=== PATIENT | female | born 1990 | race Caucasian/White ===

== ENCOUNTER 2018-12-02 17:03 | Emergency (ER) | payer BC, MEDICAID ==
[2018-12-02] MEDS ORDERED: Sodium Chloride 0.9% 10 ML Syringe FLUSH PRN (17:10)
[2018-12-02] MEDS ORDERED: Sodium Chloride 0.9% 2.5 ML Syringe FLUSH PRN (17:10)
--- NOTE | 2018-12-02 17:18 | EDM.PDOC ---
ED HPI GENERAL MEDICAL PROBLEM - General Chief Complaint: Neuro Symptoms/Deficits Stated Complaint: HIGH BP Time Seen by Provider: 12/02/18 17:05 Source of Information: Reports: Patient History Limitations: Reports: No Limitations - History of Present Illness INITIAL COMMENTS - FREE TEXT/NARRATIVE: HISTORY AND PHYSICAL: History of present illness: Patient reports that she had elevated blood pressure 2 weeks prior to delivering her baby. Patient reports that she had a vaginal delivery on 11/22/18. She continues to have elevated blood pressure and is now currently on 3 antihypertensive medications: Lisinopril, nifedipine, and labetalol. She recently was admitted for hypertension management at [facility]. She states that she does have some muscle twitching in bilateral cheeks on her face and has some generalized weakness to bilateral hands. She has not had any unilateral deficits or weakness. She denies any syncope, near syncope or head injury. She has had some blurred vision. She denies any fever, chills, chest pain, shortness of breath or cough. Denies any abdominal pain, nausea, vomiting, diarrhea, constipation or dysuria. She has been able to eat and drink appropriately. Review of systems: As per history of present illness and below otherwise all systems reviewed and negative. Past medical history: As per history of present illness and as reviewed below otherwise noncontributory. Surgical history: As per history of present illness and as reviewed below otherwise noncontributory. Social history: See social history for further information Family history: As per history of present illness and as reviewed below otherwise noncontributory. Physical exam: General: Well-developed and well-nourished 28-year-old female. Alert and oriented. Nontoxic appearing and in no acute distress. HEENT: Atraumatic, normocephalic, pupils equal and reactive bilaterally, negative for conjunctival pallor or scleral icterus, mucous membranes moist, TMs normal bilaterally, throat clear, neck supple, nontender, trachea midline. No drooling or trismus noted. No meningeal signs. No hot potato voice noted. Lungs: Clear to auscultation, breath sounds equal bilaterally, chest nontender. Heart: S1S2, regular rate and rhythm without overt murmur Abdomen: Soft, nondistended, nontender. Negative for masses or hepatosplenomegaly. Negative for costovertebral tenderness. Pelvis: Stable nontender. Genitourinary: Deferred. Rectal: Deferred. Skin: Intact, warm, dry. No lesions or rashes noted. Extremities: Atraumatic, negative for cords or calf pain. Neurovascular unremarkable. Neuro: Awake, alert, oriented. Cranial nerves II through XII unremarkable. Cerebellum unremarkable. Motor and sensory unremarkable throughout. Exam nonfocal. Notes: The labetalol has brought her blood pressure and headache pain down. She declines any need for any medications for her headache at this time. Lab work shows unspecified anemia. She does have protein in her urine. With trace edema to the lower extremities. I did offer the patient admission which she declined. She states that she wants to be at home with her baby. I did contact Dr Kohler, her OBGYN at [facility], and she was updated on patient's status. Dr. Kohler is aware of the patient being here in the emergency room and does not want any of her medications adjusted as she was just placed on the medication was yesterday. Dr. Kohler believes that the major component of the patient's symptoms is related to anxiety. I would agree that the patient does have moderate anxiety related to "having a stroke" due to her high blood pressure. She does have a follow-up appointment in the next 2-3 days for reevaluation with Dr. Kohler. This information was shared with the patient. Her blood pressure is stable. Headache is minimized. Supportive care measures were reviewed and discussed. Voices understanding and is agreeable to plan of care. Denies any further questions or concerns at this time. Diagnostics: CBC, CMP, BNP, UA, EKG, head CT, chest x-ray Therapeutics: Labetalol IV Zofran, Toradol, Reglan and Benadryl (Headache cocktail- Declined) Impression: Uncontrolled hypertension (Preeclampsia) Anemia Proteinuria Anxiety Plan: 1. Continue to take your medications as prescribed. 2. Increase your oral fluids. Try to increase your diet to me to her dietary needs while breast-feeding. 3. Follow-up with Dr. Kohler as you already have arranged. Return to the ED as needed and as discussed. Definitive disposition and diagnosis as appropriate pending reevaluation and review of above. Headache Pain Score (Numeric/FACES): 6 - Related Data Allergies Allergy/AdvReac Type Severity Reaction Status Date / Time No Known Allergies Allergy Verified 12/02/18 17:09 Home Meds: Home Meds Acetaminophen 325 mg PO DAILY 12/02/18 [History] Aspirin [Mallika Chewable] 81 mg PO DAILY 12/02/18 [History] Cephalexin [Keflex] 500 mg PO DAILY 12/02/18 [History] Ferrous Sulfate [Iron] 325 mg PO DAILY 12/02/18 [History] Ibuprofen 200 mg PO DAILY 12/02/18 [History] Labetalol HCl [Labetalol] 200 mg PO DAILY 12/02/18 [History] Lisinopril 10 mg PO DAILY 12/02/18 [History] NIFEdipine [Nifedipine ER] 30 mg PO DAILY 12/02/18 [History] Ondansetron [Zofran ODT] 4 mg PO DAILY 12/02/18 [History] ED ROS GENERAL - Review of Systems Review Of Systems: ROS reveals no pertinent complaints other than HPI. ED EXAM, NEURO - Physical Exam Exam: See Below (See dictation) Course - Vital Signs Last Recorded V/S: Last Vital Signs Temp 98.2 F 12/02/18 17:09 Pulse 77 12/02/18 18:03 Resp 18 12/02/18 17:09 BP 149/81 H 12/02/18 18:03 Pulse Ox 94 L 12/02/18 17:09 - Orders/Labs/Meds Orders: Active Orders 24 hr Category Date Time Status EKG Documentation Completion [RC] STAT Care 12/02/18 17:20 Active Sodium Chloride 0.9% [Saline Flush] Med 12/02/18 17:10 Active 10 ml FLUSH ASDIRECTED PRN Sodium Chloride 0.9% [Saline Flush] Med 12/02/18 17:10 Active 2.5 ml FLUSH ASDIRECTED PRN Saline Lock Insert [OM.PC] Stat Oth 12/02/18 17:10 Ordered Medication Orders Sodium Chloride (Saline Flush) 10 ml FLUSH ASDIRECTED PRN PRN Reason: Keep Vein Open Sodium Chloride (Saline Flush) 2.5 ml FLUSH ASDIRECTED PRN PRN Reason: Keep Vein Open Labs: Laboratory Tests 12/02/18 12/02/18 12/02/18 Range/Units 17:41 17:41 17:41 WBC 8.97 (4.0-11.0) K/uL RBC 3.00 L (4.30-5.90) M/uL Hgb 9.8 L (12.0-16.0) g/dL Hct 28.2 L (36.0-46.0) % MCV 94.0 (80.0-98.0) fL MCH 32.7 H (27.0-32.0) pg MCHC 34.8 (31.0-37.0) g/dL RDW Std Deviation 46.7 (28.0-62.0) fl RDW Coeff of Brant 14 (11.0-15.0) % Plt Count 250 (150-400) K/uL MPV 9.10 (7.40-12.00) fL Neut % (Auto) 72.9 (48.0-80.0) % Lymph % (Auto) 18.1 (16.0-40.0) % [place] % (Auto) 6.4 (0.0-15.0) % Eos % (Auto) 2.0 (0.0-7.0) % Baso % (Auto) 0.6 (0.0-1.5) % Neut # (Auto) 6.6 H (1.4-5.7) K/uL Lymph # (Auto) 1.6 (0.6-2.4) K/uL [place] # (Auto) 0.6 (0.0-0.8) K/uL Eos # (Auto) 0.2 (0.0-0.7) K/uL Baso # (Auto) 0.1 (0.0-0.1) K/uL Nucleated RBC % 0.0 /100WBC Nucleated RBCs # 0 K/uL Sodium 138 (136-145) mmol/L Potassium 5.0 (3.5-5.1) mmol/L Chloride 106 (98-107) mmol/L Carbon Dioxide 24.0 (21.0-32.0) mmol/L BUN 28 H (7.0-18.0) mg/dL Creatinine 1.0 (0.6-1.0) mg/dL Est Cr Clr Drug Dosing 68.05 mL/min Estimated GFR (MDRD) > 60.0 ml/min Glucose 205 H (74-106) mg/dL Calcium 8.3 L (8.5-10.1) mg/dL Total Bilirubin 0.4 (0.2-1.0) mg/dL AST 18 (15-37) IU/L ALT 29 (14-63) IU/L Alkaline Phosphatase 71 (46-116) U/L B-Natriuretic Peptide 69 (<100) PG/ML Total Protein 6.3 L (6.4-8.2) g/dL Albumin 2.7 L (3.4-5.0) g/dL Globulin 3.6 (2.6-4.0) g/dL Albumin/Globulin Ratio 0.8 L (0.9-1.6) Urine Color Urine Appearance Urine pH (5.0-8.0) Ur Specific Bells (1.001-1.035) Urine Protein (NEGATIVE) mg/dL Urine Glucose (UA) (NEGATIVE) mg/dL Urine Ketones (NEGATIVE) mg/dL Urine Occult Blood (NEGATIVE) Urine Nitrite (NEGATIVE) Urine Bilirubin (NEGATIVE) Urine Urobilinogen (<2.0) EU/dL Ur Leukocyte Esterase (NEGATIVE) Urine RBC (0-2/HPF) Urine WBC (0-5/HPF) Ur Epithelial Cells (NONE-FEW) Urine Bacteria (NEGATIVE) 12/02/18 Range/Units 18:06 WBC (4.0-11.0) K/uL RBC (4.30-5.90) M/uL Hgb (12.0-16.0) g/dL Hct (36.0-46.0) % MCV (80.0-98.0) fL MCH (27.0-32.0) pg MCHC (31.0-37.0) g/dL RDW Std Deviation (28.0-62.0) fl RDW Coeff of Brant (11.0-15.0) % Plt Count (150-400) K/uL MPV (7.40-12.00) fL Neut % (Auto) (48.0-80.0) % Lymph % (Auto) (16.0-40.0) % [place] % (Auto) (0.0-15.0) % Eos % (Auto) (0.0-7.0) % Baso % (Auto) (0.0-1.5) % Neut # (Auto) (1.4-5.7) K/uL Lymph # (Auto) (0.6-2.4) K/uL [place] # (Auto) (0.0-0.8) K/uL Eos # (Auto) (0.0-0.7) K/uL Baso # (Auto) (0.0-0.1) K/uL Nucleated RBC % /100WBC Nucleated RBCs # K/uL Sodium (136-145) mmol/L Potassium (3.5-5.1) mmol/L Chloride (98-107) mmol/L Carbon Dioxide (21.0-32.0) mmol/L BUN (7.0-18.0) mg/dL Creatinine (0.6-1.0) mg/dL Est Cr Clr Drug Dosing mL/min Estimated GFR (MDRD) ml/min Glucose (74-106) mg/dL Calcium (8.5-10.1) mg/dL Total Bilirubin (0.2-1.0) mg/dL AST (15-37) IU/L ALT (14-63) IU/L Alkaline Phosphatase (46-116) U/L B-Natriuretic Peptide (<100) PG/ML Total Protein (6.4-8.2) g/dL Albumin (3.4-5.0) g/dL Globulin (2.6-4.0) g/dL Albumin/Globulin Ratio (0.9-1.6) Urine Color YELLOW Urine Appearance CLEAR Urine pH 6.5 (5.0-8.0) Ur Specific Bells 1.015 (1.001-1.035) Urine Protein 100 H (NEGATIVE) mg/dL Urine Glucose (UA) NEGATIVE (NEGATIVE) mg/dL Urine Ketones NEGATIVE (NEGATIVE) mg/dL Urine Occult Blood MODERATE H (NEGATIVE) Urine Nitrite NEGATIVE (NEGATIVE) Urine Bilirubin NEGATIVE (NEGATIVE) Urine Urobilinogen 0.2 (<2.0) EU/dL Ur Leukocyte Esterase NEGATIVE (NEGATIVE) Urine RBC 1-3 (0-2/HPF) Urine WBC 1-2 (0-5/HPF) Ur Epithelial Cells FEW (NONE-FEW) Urine Bacteria FEW (NEGATIVE) Meds: Medications Generic Name Dose Route Start Last Admin Trade Name Freq PRN Reason Stop Dose Admin Sodium Chloride 10 ml 12/02/18 17:10 Saline Flush FLUSH ASDIRECTED PRN Keep Vein Open Sodium Chloride 2.5 ml 12/02/18 17:10 Saline Flush FLUSH ASDIRECTED PRN Keep Vein Open Discontinued Medications Generic Name Dose Route Start Last Admin Trade Name Misael PRN Reason Stop Dose Admin Diphenhydramine HCl 25 mg 12/02/18 17:21 12/02/18 18:12 Benadryl IVPUSH 12/02/18 17:22 Not Given ONETIME ONE Ketorolac Tromethamine 30 mg 12/02/18 17:21 12/02/18 18:12 Toradol IVPUSH 12/02/18 17:22 Not Given ONETIME ONE Labetalol HCl 20 mg 12/02/18 17:20 12/02/18 17:28 Normodyne IVPUSH 12/02/18 17:21 20 mg NOW ONE Administration Protocol Metoclopramide HCl 5 mg 12/02/18 17:22 12/02/18 18:12 Reglan IVPUSH 12/02/18 17:23 Not Given ONETIME ONE Ondansetron HCl 4 mg 12/02/18 17:21 12/02/18 18:12 Zofran IVPUSH 12/02/18 17:22 Not Given ONETIME ONE Departure - Departure Time of Disposition: 18:54 Disposition: Home, Self-Care 01 Clinical Impression: Anxiety, Uncontrolled hypertension Proteinuria Qualifiers: Proteinuria type: unspecified Qualified Code(s): R80.9 - Proteinuria, unspecified Anemia Qualifiers: Anemia type: unspecified type Qualified Code(s): D64.9 - Anemia, unspecified - Discharge Information Instructions: Generalized Anxiety Disorder, Adult, Hypertension, Proteinuria Referrals: PCP,Unknown [Primary Care Provider] - Forms: ED Department Discharge Additional Instructions: The following information is given to patients seen in the emergency department who are being discharged to home. This information is to outline your options for follow-up care. We provide all patients seen in our emergency department with a follow-up referral. The need for follow-up, as well as the timing and circumstances, are variable depending upon the specifics of your emergency department visit. If you don't have a primary care physician on staff, we will provide you with a referral. We always advise you to contact your personal physician following an emergency department visit to inform them of the circumstance of the visit and for follow-up with them and/or the need for any referrals to a consulting specialist. The emergency department will also refer you to a specialist when appropriate. This referral assures that you have the opportunity for follow-up care with a specialist. All of these measure are taken in an effort to provide you with optimal care, which includes your follow-up. Under all circumstances we always encourage you to contact your private physician who remains a resource for coordinating your care. When calling for follow-up care, please make the office aware that this follow-up is from your recent emergency room visit. If for any reason you are refused follow-up, please contact the [facility] Emergency Department at and asked to speak to the emergency department charge nurse. [facility] Primary Care [address], [place] [address] [facility] [address] [place] [id number] [facility] [address] [place] [address] 1. Continue to take your medications as prescribed. 2. Increase your oral fluids. Try to increase your diet to me to her dietary needs while breast-feeding. 3. Follow-up with Dr. Kohler as you already have arranged. Return to the ED as needed and as discussed. - My Orders Last 24 Hours: My Active Orders 12/02/18 17:10 Sodium Chloride 0.9% [Saline Flush] 10 ml FLUSH ASDIRECTED PRN Sodium Chloride 0.9% [Saline Flush] 2.5 ml FLUSH ASDIRECTED PRN Saline Lock Insert [OM.PC] Stat 12/02/18 17:20 EKG Documentation Completion [RC] STAT - Assessment/Plan Last 24 Hours: My Active Orders 12/02/18 17:10 Sodium Chloride 0.9% [Saline Flush] 10 ml FLUSH ASDIRECTED PRN Sodium Chloride 0.9% [Saline Flush] 2.5 ml FLUSH ASDIRECTED PRN Saline Lock Insert [OM.PC] Stat 12/02/18 17:20 EKG Documentation Completion [RC] STAT
[2018-12-02] MEDS ORDERED: Labetalol 20 MG/4 ML Syringe IVPUSH ONE (17:20)
[2018-12-02] MEDS ORDERED: Ketorolac 30 MG/ML SDV IVPUSH ONE (17:21)
[2018-12-02] MEDS ORDERED: Ondansetron 4 MG/2 ML SDV IVPUSH ONE (17:21)
[2018-12-02] MEDS ORDERED: diphenhydrAMINE 50 MG/ML SDV IVPUSH ONE (17:21)
[2018-12-02] MEDS ORDERED: Metoclopramide 10 MG/2 ML SDV IVPUSH ONE (17:22)
[2018-12-02 18:14] LABS: CHLORIDE,CL 106 mmol/L (98-107); SODIUM,NA 138 mmol/L (136-145)
--- NOTE | 2018-12-02 18:39 | CT ---
Pain weakness headache vision change. Technique: Noncontrast head CT scan. Coronal sagittal reformatted images. Findings Axial noncontrast images through the brain parenchyma demonstrates no acute intracranial hemorrhage or mass. No midline shift. No abnormal extra-axial air fluid collections. Paranasal sinuses mastoid air cells skull scalp appear unremarkable. IMPRESSION: No acute intracranial hemorrhage or mass. Please note that all CT scans at this facility use dose modulation, iterative reconstruction, and/or weight-based dosing when appropriate to reduce radiation dose to as low as reasonably achievable. Dictated by Josefina Kearney MD @ Dec 02 2018 6:35PM Signed by Dr. Josefina Kearney @ Dec 02 2018 6:38PM
== END 2018-12-02 19:12 | disposition home or self-care (01) ==
LOC: MW.ED 17:03
DX: O14.95 Unspecified pre-eclampsia, complicating the puerperium (principal); O90.81 Anemia of the puerperium; O12.15 Gestational proteinuria, complicating the puerperium; O99.345 Other mental disorders complicating the puerperium; F41.9 Anxiety disorder, unspecified; Z79.82 Long term (current) use of aspirin; Z79.899 Other long term (current) drug therapy
CPT/HCPCS: 36415; 70450; 80053; 81001; 83880; 85025; 93005; 96374; 99284; J3490

== ENCOUNTER 2018-12-06 13:14 | Emergency (ER) | payer BC, MEDICAID ==
[2018-12-06] MEDS ORDERED: Sodium Chloride 0.9% 1,000 ML IV ONE (13:35)
--- NOTE | 2018-12-06 13:38 | EDM.PDOC ---
ED HPI GENERAL MEDICAL PROBLEM - General Chief Complaint: Cardiovascular Problem Stated Complaint: HIGH BP Time Seen by Provider: 12/06/18 13:18 Source of Information: Reports: Patient History Limitations: Reports: No Limitations - History of Present Illness INITIAL COMMENTS - FREE TEXT/NARRATIVE: HISTORY AND PHYSICAL: History of present illness: Patient is a 28-year-old female who presents to the ED today with concerns of "feeling off". Patient does have a history of gestational hypertension in which she is currently on 3 blood pressure medications per her [employer] [employer] physician. She states that she follows them routinely. She states that she is concerned that the way she is feeling today is due to her blood pressure being low. She states she did check it at home and it was 80/40s. Patient states she feels lightheaded and dizzy. Patient states other than feeling lightheaded and dizzy she cannot report any other symptoms at this time. Patient was seen in the ED on 12/02/18 for concerns of high blood pressure. A workup was done at that time and was found to be unremarkable. Patient did deliver a baby on 11/22/18 with gestational hypertension. She denies fever, chills, cough, shortness of breath, difficulties breathing, syncope or near syncope, nausea, vomiting, abdominal pain, vaginal discharge, or all other GI, , cardiovascular, or respiratory concerns.She does have a history of type 1 diabetes, anemia, gestational hypertension, but denies any other health history. Review of systems: As per history of present illness and below otherwise all systems reviewed and negative. Past medical history: As per history of present illness and as reviewed below otherwise noncontributory. Surgical history: As per history of present illness and as reviewed below otherwise noncontributory. Social history: No reported history of drug or alcohol abuse. Family history: As per history of present illness and as reviewed below otherwise noncontributory. Physical exam: General: Patient sitting comfortably in no acute distress and nontoxic appearing HEENT: Atraumatic, normocephalic, pupils reactive, negative for conjunctival pallor or scleral icterus, mucous membranes dry, throat clear, neck supple, nontender, trachea midline. No meningeal signs. Lungs: Clear to auscultation, breath sounds equal bilaterally, chest nontender. Heart: S1S2, regular, negative for clicks, rubs, or overt murmur. Abdomen: Soft, nondistended, nontender. Negative for masses or hepatosplenomegaly. Negative for costovertebral tenderness. No rigidity, rebound , guarding. Pelvis: Stable nontender. Genitourinary: Deferred. Rectal: Deferred. Extremities: Atraumatic, negative for cords or calf pain. Neurovascular unremarkable. Neuro: Awake, alert, oriented. Cranial nerves II through XII unremarkable. Cerebellum unremarkable. Motor and sensory unremarkable throughout. Exam nonfocal. Notes: Exam today is unremarkable. Vital signs are reassuring and patient is not hypo- or hypertensive. We'll do lab work to assess her symptoms. Patient does have an elevated potassium and after half of fluids remained elevated. Patient does show signs of dehydration and patient states she has not been drinking much lately. Offered admission to patient for dehydration and hyperkalemia but patient prefers to go home at this time. Patient states that she has an appointment tomorrow with her [employer] and will follow up with her blood pressure medications tomorrow. Encourage patient to drink frequent sips of fluid and discussed the importance of followup. Supportive care measures were reviewed and discussed with patient and she is agreeable to plan of care without any questions or concerns at this time. Diagnostics: CBC, CMP, UA, orthostatic vitals, EKG, bedside glucose Therapeutics: Saline Prescriptions: None Impression: Dehydration Hyperkalemia History of type 1 diabetes History of gestational hypertension Plan: 1. Take frequent sips of water to improve dehydration. Encourage pushing fluids. 2. Be sure to continue to monitor your sugars at home. 3. Follow-up with your primary care provider and [employer] as scheduled and as discussed. 4. Return to the ED as needed and as discussed. Definitive disposition and diagnosis as appropriate pending reevaluation and review of above. - Related Data Allergies Allergy/AdvReac Type Severity Reaction Status Date / Time No Known Allergies Allergy Verified 12/02/18 17:09 Home Meds: Home Meds Acetaminophen 325 mg PO DAILY 12/02/18 [History] Aspirin [Mallika Chewable] 81 mg PO DAILY 12/02/18 [History] Cephalexin [Keflex] 500 mg PO DAILY 12/02/18 [History] Ferrous Sulfate [Iron] 325 mg PO DAILY 12/02/18 [History] Ibuprofen 200 mg PO DAILY 12/02/18 [History] Labetalol HCl [Labetalol] 400 mg PO BID 12/02/18 [History] Lisinopril 10 mg PO DAILY 12/02/18 [History] NIFEdipine [Nifedipine ER] 30 mg PO DAILY 12/02/18 [History] Ondansetron [Zofran ODT] 4 mg PO DAILY 12/02/18 [History] Past Medical History HEENT History: Reports: Impaired Vision Cardiovascular History: Reports: Hypertension Gastrointestinal History: Reports: None Genitourinary History: Reports: None [employer] History: Reports: Musculoskeletal History: Reports: None Neurological History: Reports: None Endocrine/Metabolic History: Reports: None - Infectious Disease History Infectious Disease History: Reports: MRSA - Past Surgical History HEENT Surgical History: Reports: None Cardiovascular Surgical History: Reports: None GI Surgical History: Reports: None Female Surgical History: Reports: Breast Implant Musculoskeletal Surgical History: Reports: None Social & Family History - Family History Family Medical History: Noncontributory - Caffeine Use Caffeine Use: Reports: None ED ROS GENERAL - Review of Systems Review Of Systems: ROS reveals no pertinent complaints other than HPI. ED EXAM, GENERAL - Physical Exam Exam: See Below (See dictation) Course - Vital Signs Last Recorded V/S: Last Vital Signs Temp 97.8 F 12/06/18 13:18 Pulse 74 12/06/18 14:00 Resp 18 12/06/18 13:18 BP 131/89 12/06/18 16:07 Pulse Ox 95 12/06/18 14:00 Orthostatic Blood Pressure [ 127/92 Standing] Orthostatic Blood Pressure [ 142/85 Sitting] Orthostatic Blood Pressure [ 143/91 Supine] - Orders/Labs/Meds Orders: Active Orders 24 hr Category Date Time Status Blood Glucose Check, Bedside [RC] ONETIME Care 12/06/18 13:44 Active Communication Order [RC] STAT Care 12/06/18 15:37 Active EKG Documentation Completion [RC] STAT Care 12/06/18 13:44 Active Orthostatic Vital Signs [RC] ASDIRECTED Care 12/06/18 13:34 Active CULTURE URINE [RM] Stat Lab 12/06/18 14:29 Received Labs: Laboratory Tests 12/06/18 12/06/18 12/06/18 Range/Units 14:08 14:08 14:08 WBC 10.41 (4.0-11.0) K/uL RBC 3.42 L (4.30-5.90) M/uL Hgb 11.2 L (12.0-16.0) g/dL Hct 31.8 L (36.0-46.0) % MCV 93.0 (80.0-98.0) fL MCH 32.7 H (27.0-32.0) pg MCHC 35.2 (31.0-37.0) g/dL RDW Std Deviation 46.1 (28.0-62.0) fl RDW Coeff of Brant 13 (11.0-15.0) % Plt Count 330 (150-400) K/uL MPV 9.40 (7.40-12.00) fL Neut % (Auto) 73.6 (48.0-80.0) % Lymph % (Auto) 19.3 (16.0-40.0) % [place] % (Auto) 4.1 (0.0-15.0) % Eos % (Auto) 2.5 (0.0-7.0) % Baso % (Auto) 0.5 (0.0-1.5) % Neut # (Auto) 7.7 H (1.4-5.7) K/uL Lymph # (Auto) 2.0 (0.6-2.4) K/uL [place] # (Auto) 0.4 (0.0-0.8) K/uL Eos # (Auto) 0.3 (0.0-0.7) K/uL Baso # (Auto) 0.1 (0.0-0.1) K/uL Nucleated RBC % 0.0 /100WBC Nucleated RBCs # 0 K/uL Sodium 132 L (136-145) mmol/L Potassium 5.4 H (3.5-5.1) mmol/L Chloride 101 (98-107) mmol/L Carbon Dioxide 20.6 L (21.0-32.0) mmol/L BUN 64 H (7.0-18.0) mg/dL Creatinine 1.1 H (0.6-1.0) mg/dL Est Cr Clr Drug Dosing 70.01 mL/min Estimated GFR (MDRD) 58.3 ml/min Glucose 72 L (74-106) mg/dL Calcium 9.7 (8.5-10.1) mg/dL Magnesium 2.3 (1.8-2.4) mg/dL Total Bilirubin 0.3 (0.2-1.0) mg/dL AST 27 (15-37) IU/L ALT 53 (14-63) IU/L Alkaline Phosphatase 65 (46-116) U/L Total Protein 7.2 (6.4-8.2) g/dL Albumin 3.2 L (3.4-5.0) g/dL Globulin 4.0 (2.6-4.0) g/dL Albumin/Globulin Ratio 0.8 L (0.9-1.6) Urine Color Urine Appearance Urine pH (5.0-8.0) Ur Specific Seltzer (1.001-1.035) Urine Protein (NEGATIVE) mg/dL Urine Glucose (UA) (NEGATIVE) mg/dL Urine Ketones (NEGATIVE) mg/dL Urine Occult Blood (NEGATIVE) Urine Nitrite (NEGATIVE) Urine Bilirubin (NEGATIVE) Urine Urobilinogen (<2.0) EU/dL Ur Leukocyte Esterase (NEGATIVE) Urine RBC (0-2/HPF) Urine WBC (0-5/HPF) Ur Epithelial Cells (NONE-FEW) Urine Bacteria (NEGATIVE) 12/06/18 12/06/18 Range/Units 14:29 16:30 WBC (4.0-11.0) K/uL RBC (4.30-5.90) M/uL Hgb (12.0-16.0) g/dL Hct (36.0-46.0) % MCV (80.0-98.0) fL MCH (27.0-32.0) pg MCHC (31.0-37.0) g/dL RDW Std Deviation (28.0-62.0) fl RDW Coeff of Brant (11.0-15.0) % Plt Count (150-400) K/uL MPV (7.40-12.00) fL Neut % (Auto) (48.0-80.0) % Lymph % (Auto) (16.0-40.0) % [place] % (Auto) (0.0-15.0) % Eos % (Auto) (0.0-7.0) % Baso % (Auto) (0.0-1.5) % Neut # (Auto) (1.4-5.7) K/uL Lymph # (Auto) (0.6-2.4) K/uL [place] # (Auto) (0.0-0.8) K/uL Eos # (Auto) (0.0-0.7) K/uL Baso # (Auto) (0.0-0.1) K/uL Nucleated RBC % /100WBC Nucleated RBCs # K/uL Sodium (136-145) mmol/L Potassium 5.5 H (3.5-5.1) mmol/L Chloride (98-107) mmol/L Carbon Dioxide (21.0-32.0) mmol/L BUN (7.0-18.0) mg/dL Creatinine (0.6-1.0) mg/dL Est Cr Clr Drug Dosing mL/min Estimated GFR (MDRD) ml/min Glucose (74-106) mg/dL Calcium (8.5-10.1) mg/dL Magnesium (1.8-2.4) mg/dL Total Bilirubin (0.2-1.0) mg/dL AST (15-37) IU/L ALT (14-63) IU/L Alkaline Phosphatase (46-116) U/L Total Protein (6.4-8.2) g/dL Albumin (3.4-5.0) g/dL Globulin (2.6-4.0) g/dL Albumin/Globulin Ratio (0.9-1.6) Urine Color YELLOW Urine Appearance SLT CLOUDY Urine pH 5.5 (5.0-8.0) Ur Specific [place]zer 1.010 (1.001-1.035) Urine Protein TRACE H (NEGATIVE) mg/dL Urine Glucose (UA) NEGATIVE (NEGATIVE) mg/dL Urine Ketones NEGATIVE (NEGATIVE) mg/dL Urine Occult Blood TRACE-INTACT H (NEGATIVE) Urine Nitrite NEGATIVE (NEGATIVE) Urine Bilirubin NEGATIVE (NEGATIVE) Urine Urobilinogen 0.2 (<2.0) EU/dL Ur Leukocyte Esterase SMALL H (NEGATIVE) Urine RBC 0-2 (0-2/HPF) Urine WBC 2-4 (0-5/HPF) Ur Epithelial Cells FEW (NONE-FEW) Urine Bacteria FEW (NEGATIVE) Meds: Medications Discontinued Medications Generic Name Dose Route Start Last Admin Trade Name Freq PRN Reason Stop Dose Admin Sodium Chloride 1,000 mls @ 999 mls/hr 12/06/18 13:35 12/06/18 15:37 Normal Saline IV 12/06/18 14:35 999 mls/hr STAT ONE Administration Departure - Departure Time of Disposition: 17:17 Disposition: Home, Self-Care 01 Clinical Impression: Dehydration, Hyperkalemia, History of diabetes mellitus, type I, History of gestational hypertension Instructions: Dehydration, Adult, Hyperkalemia, [id number] Forms: ED Department Discharge Additional Instructions: The following information is given to patients seen in the emergency department who are being discharged to home. This information is to outline your options for follow-up care. We provide all patients seen in our emergency department with a follow-up referral. The need for follow-up, as well as the timing and circumstances, are variable depending upon the specifics of your emergency department visit. If you don't have a primary care physician on staff, we will provide you with a referral. We always advise you to contact your personal physician following an emergency department visit to inform them of the circumstance of the visit and for follow-up with them and/or the need for any referrals to a consulting specialist. The emergency department will also refer you to a specialist when appropriate. This referral assures that you have the opportunity for follow-up care with a specialist. All of these measure are taken in an effort to provide you with optimal care, which includes your follow-up. Under all circumstances we always encourage you to contact your private physician who remains a resource for coordinating your care. When calling for follow-up care, please make the office aware that this follow-up is from your recent emergency room visit. If for any reason you are refused follow-up, please contact the [facility] Emergency Department at and asked to speak to the emergency department charge nurse. [facility] [address] [place] [id number] [id number] 1. Take frequent sips of water to improve dehydration. Encourage pushing fluids. 2. Be sure to continue to monitor your sugars at home. 3. Follow-up with your primary care provider and [employer] as scheduled and as discussed. 4. Return to the ED as needed and as discussed. - My Orders Last 24 Hours: My Active Orders 12/06/18 13:34 Orthostatic Vital Signs [RC] ASDIRECTED 12/06/18 13:44 Blood Glucose Check, Bedside [RC] ONETIME EKG Documentation Completion [RC] STAT 12/06/18 14:29 CULTURE URINE [RM] Stat 12/06/18 15:37 Communication Order [RC] STAT - Assessment/Plan Last 24 Hours: My Active Orders 12/06/18 13:34 Orthostatic Vital Signs [RC] ASDIRECTED 12/06/18 13:44 Blood Glucose Check, Bedside [RC] ONETIME EKG Documentation Completion [RC] STAT 12/06/18 14:29 CULTURE URINE [RM] Stat 12/06/18 15:37 Communication Order [RC] STAT
== END 2018-12-06 18:04 | disposition home or self-care (01) ==
LOC: MW.ED 13:14
DX: E87.5 Hyperkalemia (principal); E86.0 Dehydration; I10 Essential (primary) hypertension; E10.9 Type 1 diabetes mellitus without complications; Z79.82 Long term (current) use of aspirin; Z79.899 Other long term (current) drug therapy
CPT/HCPCS: 36415; 80053; 81001; 83735; 84132; 85025; 87086; 93005; 96360; 99284; J7040; 99283

== ENCOUNTER 2018-12-14 03:34 | Emergency (ER) | payer BC, MEDICAID ==
[2018-12-14] MEDS ORDERED: Sodium Chloride 0.9% 10 ML Syringe FLUSH PRN (03:42)
[2018-12-14] MEDS ORDERED: Sodium Chloride 0.9% 2.5 ML Syringe FLUSH PRN (03:42)
[2018-12-14] MEDS ORDERED: Sodium Chloride 0.9% 1,000 ML IV ONE (03:47)
--- NOTE | 2018-12-14 03:47 | EDM.PDOC ---
ED HPI GENERAL MEDICAL PROBLEM - General Chief Complaint: Diabetic Complaint Stated Complaint: VOMITING Time Seen by Provider: 12/14/18 03:44 - History of Present Illness INITIAL COMMENTS - FREE TEXT/NARRATIVE: HISTORY AND PHYSICAL: History of present illness: Patient 28-year-old white female history of insulin-dependent diabetes presents with concern insulin reaction with hypoglycemia patient states her blood sugar was 45 before going to sleep but she ate a brownie but subsequently developed hypoglycemia identified by her significant other he reported this to be in the 30s. Paramedics transported patient on arrival here blood sugars 150. Review of systems: As per history of present illness and below otherwise all systems reviewed and negative. Past medical history: As per history of present illness and as reviewed below otherwise noncontributory. Surgical history: As per history of present illness and as reviewed below otherwise noncontributory. Social history: No reported history of drug or alcohol abuse. Family history: As per history of present illness and as reviewed below otherwise noncontributory. Physical exam: HEENT: Atraumatic, normocephalic, pupils reactive, negative for conjunctival pallor or scleral icterus, mucous membranes moist, throat clear, neck supple, nontender, trachea midline. Lungs: Clear to auscultation, breath sounds equal bilaterally, chest nontender. Heart: S1S2, regular, negative for clicks, rubs, or JVD. Abdomen: Soft, nondistended, nontender. Negative for masses or hepatosplenomegaly. Negative for costovertebral tenderness. Pelvis: Stable nontender. Genitourinary: Deferred. Rectal: Deferred. Extremities: Atraumatic, negative for cords or calf pain. Neurovascular unremarkable. Neuro: Awake, alert, oriented. Cranial nerves II through XII unremarkable. Cerebellum unremarkable. Motor and sensory unremarkable throughout. Exam nonfocal. Diagnostics: CBC CMP Therapeutics: Saline 1 bolus Zofran 4 mg IV Impression: #1 insulin reaction with hypoglycemia Definitive disposition and diagnosis as appropriate pending reevaluation and review of above. - Related Data Allergies Allergy/AdvReac Type Severity Reaction Status Date / Time gluten Allergy Other Verified 12/14/18 03:37 Home Meds: Home Meds Acetaminophen 325 mg PO DAILY 12/02/18 [History] Aspirin [Mallika Chewable] 81 mg PO DAILY 12/02/18 [History] Ferrous Sulfate [Iron] 325 mg PO DAILY 12/02/18 [History] Ibuprofen 200 mg PO DAILY 12/02/18 [History] Labetalol HCl [Labetalol] 200 mg PO BID 12/02/18 [History] NIFEdipine [Nifedipine ER] 30 mg PO DAILY 12/02/18 [History] Ondansetron [Zofran ODT] 4 mg PO DAILY 12/02/18 [History] Past Medical History HEENT History: Reports: Impaired Vision Cardiovascular History: Reports: Hypertension Gastrointestinal History: Reports: None Genitourinary History: Reports: None 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: Musculoskeletal History: Reports: None Neurological History: Reports: None Endocrine/Metabolic History: Reports: Diabetes, Type I - Infectious Disease History Infectious Disease History: Reports: MRSA - Past Surgical History HEENT Surgical History: Reports: None Cardiovascular Surgical History: Reports: None GI Surgical History: Reports: None Female Surgical History: Reports: Breast Implant Musculoskeletal Surgical History: Reports: None Social & Family History - Family History Family Medical History: Noncontributory - Tobacco Use Smoking Status *Q: Never Smoker - Caffeine Use Caffeine Use: Reports: None - Recreational Drug Use Recreational Drug Use: No ED ROS GENERAL - Review of Systems Review Of Systems: ROS reveals no pertinent complaints other than HPI. ED EXAM GENERAL NO PERIP PULSE - Physical Exam Exam: See Below (dictation) Course - Vital Signs Last Recorded V/S: Last Vital Signs Temp 36.0 C 12/14/18 03:34 Pulse 91 12/14/18 03:34 Resp 18 12/14/18 03:34 BP 153/98 H 12/14/18 03:34 Pulse Ox 98 12/14/18 03:34 - Orders/Labs/Meds Orders: Active Orders 24 hr Category Date Time Status Blood Glucose Check, Bedside [RC] ONETIME Care 12/14/18 03:44 Ordered CBC WITH AUTO DIFF [HEME] Stat Lab 12/14/18 03:42 Ordered COMPREHENSIVE METABOLIC PN,CMP [CHEM] Stat Lab 12/14/18 03:42 Ordered Sodium Chloride 0.9% [Saline Flush] Med 12/14/18 03:42 Active 10 ml FLUSH ASDIRECTED PRN Sodium Chloride 0.9% [Saline Flush] Med 12/14/18 03:42 Active 2.5 ml FLUSH ASDIRECTED PRN Saline Lock Insert [OM.PC] Stat Oth 12/14/18 03:42 Ordered Medication Orders Sodium Chloride (Saline Flush) 10 ml FLUSH ASDIRECTED PRN PRN Reason: Keep Vein Open Sodium Chloride (Saline Flush) 2.5 ml FLUSH ASDIRECTED PRN PRN Reason: Keep Vein Open Meds: Medications Generic Name Dose Route Start Last Admin Trade Name Fresrinivas PRN Reason Stop Dose Admin Sodium Chloride 10 ml 12/14/18 03:42 Saline Flush FLUSH ASDIRECTED PRN Keep Vein Open Sodium Chloride 2.5 ml 12/14/18 03:42 Saline Flush FLUSH ASDIRECTED PRN Keep Vein Open Departure - Departure Time of Disposition: 03:46 Disposition: Home, Self-Care 01 Condition: Good Clinical Impression: Hypoglycemia, History of diabetes mellitus, type I, Insulin reaction - Discharge Information Additional Instructions: The following information is given to patients seen in the emergency department who are being discharged to home. This information is to outline your options for follow-up care. We provide all patients seen in our emergency department with a follow-up referral. The need for follow-up, as well as the timing and circumstances, are variable depending upon the specifics of your emergency department visit. If you don't have a primary care physician on staff, we will provide you with a referral. We always advise you to contact your personal physician following an emergency department visit to inform them of the circumstance of the visit and for follow-up with them and/or the need for any referrals to a consulting specialist. The emergency department will also refer you to a specialist when appropriate. This referral assures that you have the opportunity for followup care with a specialist. All of these measure are taken in an effort to provide you with optimal care, which includes your followup. Under all circumstances we always encourage you to contact your private physician who remains a resource for coordinating your care. When calling for followup care, please make the office aware that this follow-up is from your recent emergency room visit. If for any reason you are refused follow-up, please contact the [facility] emergency department at and asked to speak to the emergency department charge nurse. Diet as discussed irregularly Accu-Chek 4 times a day follow primary medical doctor return as needed as discussed - My Orders Last 24 Hours: My Active Orders 12/14/18 03:42 CBC WITH AUTO DIFF [HEME] Stat COMPREHENSIVE METABOLIC PN,CMP [CHEM] Stat Sodium Chloride 0.9% [Saline Flush] 10 ml FLUSH ASDIRECTED PRN Sodium Chloride 0.9% [Saline Flush] 2.5 ml FLUSH ASDIRECTED PRN Saline Lock Insert [OM.PC] Stat 12/14/18 03:44 Blood Glucose Check, Bedside [RC] ONETIME - Assessment/Plan Last 24 Hours: My Active Orders 12/14/18 03:42 CBC WITH AUTO DIFF [HEME] Stat COMPREHENSIVE METABOLIC PN,CMP [CHEM] Stat Sodium Chloride 0.9% [Saline Flush] 10 ml FLUSH ASDIRECTED PRN Sodium Chloride 0.9% [Saline Flush] 2.5 ml FLUSH ASDIRECTED PRN Saline Lock Insert [OM.PC] Stat 12/14/18 03:44 Blood Glucose Check, Bedside [RC] ONETIME
[2018-12-14] MEDS ORDERED: Ondansetron 4 MG/2 ML SDV IVPUSH ONE (03:55)
[2018-12-14 04:17] LABS: CHLORIDE,CL 102 mmol/L (98-107); SODIUM,NA 135 mmol/L (136-145)
== END 2018-12-14 05:01 | disposition home or self-care (01) ==
LOC: MW.ED 03:34
DX: E10.649 Type 1 diabetes mellitus with hypoglycemia without coma (principal); I10 Essential (primary) hypertension; Z79.82 Long term (current) use of aspirin; Z79.899 Other long term (current) drug therapy; Z91.018 Allergy to other foods
CPT/HCPCS: 36415; 80053; 85025; 96361; 96374; 99285; J2405; J7040; 82962

== ENCOUNTER 2019-05-07 03:05 | Emergency (ER) | payer BC, MEDICAID ==
[2019-05-07] MEDS ORDERED: Sodium Chloride 0.9% 10 ML Syringe FLUSH PRN (03:27)
[2019-05-07] MEDS ORDERED: Sodium Chloride 0.9% 2.5 ML Syringe FLUSH PRN (03:27)
--- NOTE | 2019-05-07 03:52 | EDM.PDOC ---
ED HPI GENERAL MEDICAL PROBLEM - General Chief Complaint: General Stated Complaint: NAUSEATED, CHEST TIGHT Time Seen by Provider: 05/07/19 03:52 - History of Present Illness INITIAL COMMENTS - FREE TEXT/NARRATIVE: HISTORY AND PHYSICAL: History of present illness: Patient's a 28-year-old female presents with a concern of chest pain is vaguely described associated shortness of breath palpitations diaphoresis patient denies trauma denies fever chills or other complaints Review of systems: As per history of present illness and below otherwise all systems reviewed and negative. Past medical history: As per history of present illness and as reviewed below otherwise noncontributory. Surgical history: As per history of present illness and as reviewed below otherwise noncontributory. Social history: No reported history of drug or alcohol abuse. Family history: As per history of present illness and as reviewed below otherwise noncontributory. Physical exam: HEENT: Atraumatic, normocephalic, pupils reactive, negative for conjunctival pallor or scleral icterus, mucous membranes moist, throat clear, neck supple, nontender, trachea midline. Lungs: Clear to auscultation, breath sounds equal bilaterally, chest nontender. Heart: S1S2, regular, negative for clicks, rubs, or JVD. Abdomen: Soft, nondistended, nontender. Negative for masses or hepatosplenomegaly. Negative for costovertebral tenderness. Pelvis: Stable nontender. Genitourinary: Deferred. Rectal: Deferred. Extremities: Atraumatic, negative for cords or calf pain. Neurovascular unremarkable. Neuro: Awake, alert, oriented. Cranial nerves II through XII unremarkable. Cerebellum unremarkable. Motor and sensory unremarkable throughout. Exam nonfocal. Diagnostics: EKG chest x-ray Therapeutics: Saline 1 L bolus Zofran 4 mg IV Impression: #1 atypical chest pain #2 medical screening exam Definitive disposition and diagnosis as appropriate pending reevaluation and review of above. chest Pain Score (Numeric/FACES): 2 - Related Data Allergies Allergy/AdvReac Type Severity Reaction Status Date / Time gluten Allergy Other Verified 05/07/19 03:10 Home Meds: Home Meds Acetaminophen 325 mg PO ASDIRECTED 12/02/18 [History] Ibuprofen 200 mg PO ASDIRECTED PRN 12/02/18 [History] Insulin Aspart [NovoLOG] 0 unit .ROUTE 05/07/19 [History] Lisinopril 20 mg PO DAILY 05/07/19 [History] Past Medical History HEENT History: Reports: Impaired Vision Cardiovascular History: Reports: Hypertension Gastrointestinal History: Reports: None Genitourinary History: Reports: None [employer] History: Reports: Musculoskeletal History: Reports: None Neurological History: Reports: None Psychiatric History: Reports: Anxiety Endocrine/Metabolic History: Reports: Diabetes, Type I Hematologic History: Reports: None Oncologic (Cancer) History: Reports: None Dermatologic History: Reports: None - Infectious Disease History Infectious Disease History: Reports: MRSA - Past Surgical History HEENT Surgical History: Reports: None Cardiovascular Surgical History: Reports: None GI Surgical History: Reports: None Female Surgical History: Reports: Breast Implant Musculoskeletal Surgical History: Reports: None Social & Family History - Family History Family Medical History: Noncontributory - Tobacco Use Smoking Status *Q: Never Smoker - Caffeine Use Caffeine Use: Reports: None - Recreational Drug Use Recreational Drug Use: No ED ROS GENERAL - Review of Systems Review Of Systems: ROS reveals no pertinent complaints other than HPI. ED EXAM, GENERAL - Physical Exam Exam: See Below (See dictation) Course - Vital Signs Last Recorded V/S: Last Vital Signs Temp 36.7 C 05/07/19 03:14 Pulse 83 05/07/19 03:14 Resp 18 05/07/19 03:14 BP 148/93 H 05/07/19 03:14 Pulse Ox 100 05/07/19 03:14 - Orders/Labs/Meds Orders: Active Orders 24 hr Category Date Time Status EKG Documentation Completion [RC] STAT Care 05/07/19 03:18 Active Chest 1V Frontal [CR] Stat Exams 05/07/19 03:27 Ordered Head wo Cont [CT] Stat Exams 05/07/19 03:29 Ordered CBC WITH AUTO DIFF [HEME] Stat Lab 05/07/19 03:27 Ordered COMPREHENSIVE METABOLIC PN,CMP [CHEM] Stat Lab 05/07/19 03:27 Ordered INR,PT,PROTHROMBIN TIME [COAG] Stat Lab 05/07/19 03:27 Ordered TROPONIN I [CHEM] Stat Lab 05/07/19 03:27 Ordered UA RFX BERENICE AND CULT IF INDIC [URIN] Stat Lab 05/07/19 03:33 Ordered Sodium Chloride 0.9% [Saline Flush] Med 05/07/19 03:27 Active 10 ml FLUSH ASDIRECTED PRN Sodium Chloride 0.9% [Saline Flush] Med 05/07/19 03:27 Active 2.5 ml FLUSH ASDIRECTED PRN Saline Lock Insert [OM.PC] Stat Oth 05/07/19 03:27 Ordered Medication Orders Sodium Chloride (Saline Flush) 10 ml FLUSH ASDIRECTED PRN PRN Reason: Keep Vein Open Sodium Chloride (Saline Flush) 2.5 ml FLUSH ASDIRECTED PRN PRN Reason: Keep Vein Open Meds: Medications Generic Name Dose Route Start Last Admin Trade Name Freq PRN Reason Stop Dose Admin Sodium Chloride 10 ml 05/07/19 03:27 Saline Flush FLUSH ASDIRECTED PRN Keep Vein Open Sodium Chloride 2.5 ml 05/07/19 03:27 Saline Flush FLUSH ASDIRECTED PRN Keep Vein Open Discontinued Medications Generic Name Dose Route Start Last Admin Trade Name Freq PRN Reason Stop Dose Admin Ondansetron HCl 4 mg 05/07/19 03:53 Zofran IVPUSH 05/07/19 03:54 ONETIME ONE Departure - Departure Time of Disposition: 03:57 Disposition: Home, Self-Care 01 Condition: Good Clinical Impression: Atypical chest pain - Discharge Information Referrals: PCP,None [Primary Care Provider] - Forms: ED Department Discharge Additional Instructions: The following information is given to patients seen in the emergency department who are being discharged to home. This information is to outline your options for follow-up care. We provide all patients seen in our emergency department with a follow-up referral. The need for follow-up, as well as the timing and circumstances, are variable depending upon the specifics of your emergency department visit. If you don't have a primary care physician on staff, we will provide you with a referral. We always advise you to contact your personal physician following an emergency department visit to inform them of the circumstance of the visit and for follow-up with them and/or the need for any referrals to a consulting specialist. The emergency department will also refer you to a specialist when appropriate. This referral assures that you have the opportunity for followup care with a specialist. All of these measure are taken in an effort to provide you with optimal care, which includes your followup. Under all circumstances we always encourage you to contact your private physician who remains a resource for coordinating your care. When calling for followup care, please make the office aware that this follow-up is from your recent emergency room visit. If for any reason you are refused follow-up, please contact the [facility] emergency department at and asked to speak to the emergency department charge nurse. Follow-up primary medical doctor as needed discussed Motrin/Tylenol as directed return as needed as discussed - My Orders Last 24 Hours: My Active Orders 05/07/19 03:18 EKG Documentation Completion [RC] STAT 05/07/19 03:27 Chest 1V Frontal [CR] Stat CBC WITH AUTO DIFF [HEME] Stat COMPREHENSIVE METABOLIC PN,CMP [CHEM] Stat INR,PT,PROTHROMBIN TIME [COAG] Stat TROPONIN I [CHEM] Stat Sodium Chloride 0.9% [Saline Flush] 10 ml FLUSH ASDIRECTED PRN Sodium Chloride 0.9% [Saline Flush] 2.5 ml FLUSH ASDIRECTED PRN Saline Lock Insert [OM.PC] Stat 05/07/19 03:29 Head wo Cont [CT] Stat 05/07/19 03:33 UA RFX BERENICE AND CULT IF INDIC [URIN] Stat - Assessment/Plan Last 24 Hours: My Active Orders 05/07/19 03:18 EKG Documentation Completion [RC] STAT 05/07/19 03:27 Chest 1V Frontal [CR] Stat CBC WITH AUTO DIFF [HEME] Stat COMPREHENSIVE METABOLIC PN,CMP [CHEM] Stat INR,PT,PROTHROMBIN TIME [COAG] Stat TROPONIN I [CHEM] Stat Sodium Chloride 0.9% [Saline Flush] 10 ml FLUSH ASDIRECTED PRN Sodium Chloride 0.9% [Saline Flush] 2.5 ml FLUSH ASDIRECTED PRN Saline Lock Insert [OM.PC] Stat 05/07/19 03:29 Head wo Cont [CT] Stat 05/07/19 03:33 UA RFX BERENICE AND CULT IF INDIC [URIN] Stat
[2019-05-07] MEDS ORDERED: Ondansetron 4 MG/2 ML SDV IVPUSH ONE (03:53)
[2019-05-07 04:21] LABS: CHLORIDE,CL 107 mmol/L (98-107); SODIUM,NA 139 mmol/L (136-145)
--- NOTE | 2019-05-07 05:05 | CR ---
Indication: Cough for 1 week Technique: Chest 1 view Comparison: None Findings/Impression: Normal cardiac size. Ill-defined patchy opacity in the right mid lung may represent atelectasis or infection. No pneumothorax or effusion. Osseous structures intact. Dictated by Manda Shukla MD @ May 07 2019 5:02AM Signed by Dr. Manda Shukla @ May 07 2019 5:03AM
--- NOTE | 2019-05-07 05:05 | CT ---
INDICATION: Dizziness and nausea TECHNIQUE: CT head without contrast. COMPARISON: December 02, 2018 FINDINGS: CSF spaces: Within normal limits for age. Brain parenchyma: The wheeler-white differentiation is normal. No sign of mass, hemorrhage, or midline shift. Skull base and calvarium: The visualized paranasal sinuses and mastoid air cells demonstrate no acute or significant findings. The visualized orbits are grossly unremarkable. No skull fractures. IMPRESSION: Unremarkable noncontrast head CT. Please note that all CT scans at this facility use dose modulation, iterative reconstruction, and/or weight-based dosing when appropriate to reduce radiation dose to as low as reasonably achievable. Dictated by Manda Shukla MD @ May 07 2019 5:04AM Signed by Dr. Manda Shukla @ May 07 2019 5:04AM
== END 2019-05-07 05:20 | disposition home or self-care (01) ==
LOC: MW.ED 03:05
DX: R07.89 Other chest pain (principal); I10 Essential (primary) hypertension; E10.9 Type 1 diabetes mellitus without complications; Z88.8 Allergy status to other drugs, medicaments and biological substances; Z79.899 Other long term (current) drug therapy
CPT/HCPCS: 70450; 71045; 80053; 81001; 82962; 84484; 85025; 85610; 93005; 96374; 99284; J2405